=== PATIENT | female | born 1940 | race Hispanic/Latino ===

== ENCOUNTER → 2018-06-04 | Outpatient (CLI) | payer OTHER | END | disposition home or self-care (01) | LOC: OIH 10:11 | PROVIDERS: ATTEND Internal Medicine Cardiovascular Disease | DX: Z13.6 Encounter for screening for cardiovascular disorders (principal) | CPT/HCPCS: 75571 ==

== ENCOUNTER 2020-01-18 06:30 | Day surgery (SDC) | payer MEDICARE ==
[~2020-01-18] VITALS: Ht 154.9 cm; Wt 77.1 kg
[2020-01-18] VITALS (19 sets, daily range): BP systolic 105–177; BP diastolic 45–75
[~2020-01-18 06:30] MED LIST: CALC600T15 PO; CEFAZOLIN SODIUM 1 GM VIAL IVP SCH; LEVO100 PO; LOSA100T58 PO; METF-444 PO; TRAM50TA4 PO
[2020-01-18] MEDS ORDERED: SODIUM CHLORIDE 0.9% 1000ML 1,000 ML IV ONE (08:31)
[2020-01-18] MEDS ORDERED: DEXAMETHASONE SOD PHOSPHATE 10MG/ML 1ML VIAL ONE (08:48)
[2020-01-18] MEDS ORDERED: LIDOCAINE PF 2% 5ML ABBOJECT ONE (08:48)
[2020-01-18] MEDS ORDERED: MIDAZOLAM HCL 1 MG/ML 2ML VIAL ONE (08:49)
[2020-01-18] MEDS ORDERED: ONDANSETRON HCL 4 MG/2 ML VIAL ONE (08:49)
[2020-01-18] MEDS ORDERED: PROPOFOL 10 MG/ML 20ML VIAL IV ONE (08:49)
[2020-01-18] MEDS ORDERED: FENTANYL CITRATE PF 50 MCG/1 ML 2ML VIAL ONE ×2 (08:49→09:34)
[2020-01-18] MEDS ORDERED: SUCCINYLCHOLINE CHLORIDE 20 MG/ML 10 ML VIAL ONE (08:54)
[2020-01-18] MEDS ORDERED: DURAMORPH PF1 MG/ML 10ML AMP IV ONE (08:55)
[2020-01-18] MEDS ORDERED: PHENYLEPHRINE HCL 10 MG/ML 1ML VIAL IV ONE (09:30)
[2020-01-18] MEDS ORDERED: KETOROLAC TROMETHAMINE 30MG/ML ONE (09:46)
[2020-01-18] MEDS ORDERED: ACET1TAB25 PO (10:02)
[2020-01-18] MEDS ORDERED: CEPH-578 PO (10:02)
[2020-01-18] MEDS ORDERED: HYDRALAZINE HCL 20 MG/ML VIAL ONE (11:48)
--- NOTE | 2020-01-18 13:00 | NUR ---
PT DC'D HOME WITH DAUGHTER . PRINTED AND VERBAL DISCHARGE INSTRUCTIONS GIVEN. CRUTCH USE DEMONSTRATION PROVIDED. ADRIEN WRAP DRESSING TO LEFT KNEE CLEAN DRY AND INTACT. VERBALIZE UNDERSTANDING OF DISCHARGE INSTRUCTIONS. TO CAR VIA WHEELCHAIR
== END 2020-01-18 13:00 | disposition home or self-care (01) ==
LOC: DAH 06:30
PROVIDERS: ATTEND Orthopaedic Surgery
DX: S83.242A Other tear of medial meniscus, current injury, left knee, initial encounter (principal); S83.282A Other tear of lateral meniscus, current injury, left knee, initial encounter; I10 Essential (primary) hypertension; E11.9 Type 2 diabetes mellitus without complications; E03.9 Hypothyroidism, unspecified; Z86.73 Personal history of transient ischemic attack (TIA), and cerebral infarction without residual deficits; Z98.890 Other specified postprocedural states; M23.92 Unspecified internal derangement of left knee; G89.29 Other chronic pain; W22.8XXA Striking against or struck by other objects, initial encounter; Y93.89 Activity, other specified; Y92.89 Other specified places as the place of occurrence of the external cause; Y99.8 Other external cause status; Z20.828 Contact with and (suspected) exposure to other viral communicable diseases
CPT/HCPCS: 29880; 36415; 82948 ×3; A4215; A4216; A4221; A4222; A4223 ×3; A4606 ×2; A4649 ×2; A4663; A4930; A6223; C9803; J0330; J0360; J0690; J1100; J1885; J2001; J2250; J2274; J2370; J2405; J2704; J3010 ×2; J7030; J7120; U0003